=== PATIENT | female | born 2000 | race Two or more races ===

== ENCOUNTER 2019-04-03 07:53 | Emergency (ER) | payer OTHER ==
[2019-04-03] MEDS ORDERED: ONDANSETRON HCL INJ/PF 4 MG/2 ML SDV IV ONE (08:32)
--- NOTE | 2019-04-03 08:51 | ER Document Report ---
ED GI/ - General Chief Complaint: Abdominal Pain Stated Complaint: ABDOMINAL PAIN Time Seen by Provider: 04/03/19 08:31 Notes: Patient is otherwise healthy 18-year-old female presents to the emergency department for right lower abdominal pain. States his pain started 1930 last evening. Patient is also complaining of generalized nausea. States the pain is increased since last evening. States it is sharp in nature. Patient's denying any dysuria or vaginal discharge. Patient has no medical problems, takes a daily medications, has no allergies, states last menstrual cycle was 2 weeks ago. - Related Data Allergies/Adverse Reactions: No Known Allergies Allergy (Unverified 04/03/19 07:57) Past Medical History - General Information source: Patient - Social History Smoking Status: Never Smoker Chew tobacco use (# tins/day): No Frequency of alcohol use: None Drug Abuse: None Family History: Reviewed & Not Pertinent Patient has suicidal ideation: No Patient has homicidal ideation: No Past Surgical History: Reports: Hx Oral Surgery - wisdom teeth Review of Systems - Review of Systems Constitutional: denies: Fever EENT: No symptoms reported Cardiovascular: No symptoms reported Respiratory: No symptoms reported Gastrointestinal: See HPI Genitourinary: See HPI Female Genitourinary: See HPI Musculoskeletal: No symptoms reported Skin: No symptoms reported Hematologic/Lymphatic: No symptoms reported Neurological/Psychological: No symptoms reported Physical Exam - Vital signs Vitals: Temp Pulse Resp BP Pulse Ox 97.7 F 59 L 16 100/63 100 04/03/19 07:59 04/03/19 07:59 04/03/19 07:59 04/03/19 07:59 04/03/19 07:59 - Notes Notes: GENERAL: Alert, interacts well. No acute distress. HEAD: Normocephalic, atraumatic. EYES: Pupils equal, round, and reactive to light. Extraocular movements intact. ENT: Oral mucosa moist, tongue midline. NECK: Full range of motion. Supple. Trachea midline. LUNGS: Clear to auscultation bilaterally, no wheezes, rales, or rhonchi. No respiratory distress. HEART: Regular rate and rhythm. No murmur ABDOMEN: Soft, right lower quadrant abdominal pain noted, otherwise abdominal exam benign. Non-distended. Bowel sounds present in all 4 quadrants. EXTREMITIES: Moves all 4 extremities spontaneously. No edema, normal radial and dorsalis pedis pulses bilaterally. No cyanosis. BACK: no cervical, thoracic, lumbar midline tenderness. No saddle anesthesia, normal distal neurovascular exam. No CVA tenderness noted bilaterally. NEUROLOGICAL: Alert and oriented x3. Normal speech. cranial nerves II through XII grossly intact. PSYCH: Normal affect, normal mood. SKIN: Warm, dry, normal turgor. No rashes or lesions noted. Course - Re-evaluation Re-evalutation: 04/03/19 12:01 Laboratory 04/03/19 04/03/19 04/03/19 08:51 08:51 08:51 WBC 4.3 RBC 4.13 Hgb 12.3 Hct 36.0 MCV 87 MCH 29.8 MCHC 34.2 RDW 12.7 Plt Count 198 Lymph % (Auto) 39.7 Lumpkin % (Auto) 9.2 Eos % (Auto) 1.4 Baso % (Auto) 0.7 Absolute Neuts (auto) 2.1 Absolute Lymphs (auto) 1.7 Absolute Monos (auto) 0.4 Absolute Eos (auto) 0.1 Absolute Basos (auto) 0.0 Seg Neutrophils % 49.0 Sodium 140.0 Potassium 4.0 Chloride 105 Carbon Dioxide 26 Anion Gap 9 BUN 11 Creatinine 0.67 Est GFR ( Amer) > 60 Est GFR (MDRD) Non-Af > 60 Glucose 86 Calcium 9.5 Total Bilirubin 0.7 Direct Bilirubin 0.0 Neonat Total Bilirubin Not Reportable Neonat Direct Bilirubin Not Reportable Neonat Indirect Bili Not Reportable AST 18 ALT 11 Alkaline Phosphatase 45 L Total Protein 7.2 Albumin 4.5 Lipase 33.6 Serum HCG, Qual NEGATIVE Urine Color Urine Appearance Urine pH Ur Specific Dickerson Urine Protein Urine Glucose (UA) Urine Ketones Urine Blood Urine Nitrite Urine Bilirubin Urine Urobilinogen Ur Leukocyte Esterase Ur Squamous Epith Cells Calcium Oxalate Crystal Amorphous Sediment Urine Mucus Urine Ascorbic Acid 04/03/19 08:51 WBC RBC Hgb Hct MCV MCH MCHC RDW Plt Count Lymph % (Auto) [place] % (Auto) Eos % (Auto) Baso % (Auto) Absolute Neuts (auto) Absolute Lymphs (auto) Absolute Monos (auto) Absolute Eos (auto) Absolute Basos (auto) Seg Neutrophils % Sodium Potassium Chloride Carbon Dioxide Anion Gap BUN Creatinine Est GFR ( Amer) Est GFR (MDRD) Non-Af Glucose Calcium Total Bilirubin Direct Bilirubin Neonat Total Bilirubin Neonat Direct Bilirubin Neonat Indirect Bili AST ALT Alkaline Phosphatase Total Protein Albumin Lipase Serum HCG, Qual Urine Color YELLOW Urine Appearance SLIGHTLY-CLOUDY Urine pH 5.0 Ur Specific Dickerson 1.026 Urine Protein NEGATIVE Urine Glucose (UA) NEGATIVE Urine Ketones NEGATIVE Urine Blood NEGATIVE Urine Nitrite NEGATIVE Urine Bilirubin NEGATIVE Urine Urobilinogen 2.0 H Ur Leukocyte Esterase NEGATIVE Ur Squamous Epith Cells MANY Calcium Oxalate Crystal RARE Amorphous Sediment TRACE Urine Mucus 1+ Urine Ascorbic Acid NEGATIVE Abdomen Ultrasound 04/03/19 09:14 IMPRESSION: Appendix not seen, normal or otherwise. This does not exclude appendicitis. Abdomen/Pelvis CT 04/03/19 10:14 IMPRESSION: 1. No evidence of appendicitis. 2. Constipation. 3. Left adnexal region cyst, doubtful clinical significance in a reproductive age female without left pelvic symptoms. Ultrasound was unable to visualize the appendix. I have reassessed patient at bedside she continues with right lower quadrant abdominal pain. No pelvic pain noted bilaterally. Patient continues to deny any vaginal discharge or dysuria. Discussed continuing with CT although no signs of leukocytosis on blood work. Patient voices she would like to continue with CT imaging at this time. CT images shows signs of constipation. I discussed this with patient at length at bedside. Patient is wishing for magnesium citrate at this time. She continues to decline a pelvic exam. Discussed drinking half the bottle of magnesium citrate today and in 24 hours should she still not have a bowel movement drink the other half. Discussed close follow-up with primary care provider with close return precautions. - Vital Signs Vital signs: Temp Pulse Resp BP Pulse Ox 97.7 F 59 L 16 100/63 100 04/03/19 07:59 04/03/19 07:59 04/03/19 07:59 04/03/19 07:59 04/03/19 07:59 - Laboratory Result Diagrams: 04/03/19 08:51 04/03/19 08:51 Laboratory results interpreted by me: 04/03/19 04/03/19 08:51 08:51 Alkaline Phosphatase 45 L Urine Urobilinogen 2.0 H Discharge - Discharge Clinical Impression: Constipation Qualifiers: Constipation type: other constipation type Qualified Code(s): K59.09 - Other constipation Condition: Stable Disposition: HOME, SELF-CARE Instructions: Constipation ([facility]) Additional Instructions: As we discussed you have been seen and treated in the emergency department for constipation. Please make sure you drink half a bottle of magnesium citrate today. Should you not have a bowel movement in 24 hours you can drink the other half of the bottle. Please also make sure he follow-up with your primary care provider in the next 12 to 24 hours. Please return to the emergency department for any concerns. Forms: Return to Work
[2019-04-03 09:09] LABS: ABSOLUTE EOSINOPHILS # (AUTO) 0.1 10^3/uL (0.0-0.6); ABSOLUTE LYMPHOCYTES (AUTO) 1.7 10^3/uL (0.5-4.7); ABSOLUTE MONOCYTES (AUTO) 0.4 10^3/uL (0.1-1.4); ABSOLUTE NEUT (AUTO) 2.1 10^3/uL (1.7-8.2); BASOPHILS % (AUTO) 0.7 % (0-2); EOSINOPHILS % (AUTO) 1.4 % (0-6); HEMOGLOBIN 12.3 g/dL (12.0-15.5); LYMPHOCYTES % (AUTO) 39.7 % (13-45); MEAN CORPUSCULAR HEMOGLOBIN 29.8 pg (27.0-33.4); MEAN CORPUSCULAR HGB CONC 34.2 g/dL (32.0-36.0); MEAN CORPUSCULAR VOLUME 87 fl (80-97); MONOCYTES % (AUTO) 9.2 % (3-13); PLATELET COUNT 198 10^3/uL (150-450); RED BLOOD COUNT 4.13 10^6/uL (3.72-5.28); RED CELL DISTRIBUTION WIDTH 12.7 % (11.5-14.0); TOTAL CELLS COUNTED % (AUTO) 100 %; WHITE BLOOD COUNT 4.3 10^3/uL (4.0-10.5)
[2019-04-03 09:30] LABS: ALBUMIN 4.5 g/dL (3.7-5.6); ALKALINE PHOSPHATASE 45 U/L (50-135); ANION GAP 9 (5-19); ASPARTATE AMINO TRANSFERASE 18 U/L (5-30); BILIRUBIN,TOTAL 0.7 mg/dL (0.2-1.3); BLOOD UREA NITROGEN 11 mg/dL (7-20); CALCIUM 9.5 mg/dL (8.4-10.2); CARBON DIOXIDE 26 mmol/L (22-30); CHLORIDE 105 mmol/L (98-107); GLUCOSE 86 mg/dL (75-110); TOTAL PROTEIN 7.2 g/dL (6.3-8.2)
[2019-04-03 09:43] LABS: APPEARANCE,URINE SLIGHTLY-CLOUDY; BILIRUBIN,URINE NEGATIVE (NEGATIVE); COLOR,URINE YELLOW; GLUCOSE, URINE NEGATIVE (NEGATIVE); KETONES,URINE NEGATIVE (NEGATIVE); LEUKOCYTE ESTERASE,URINE NEGATIVE (NEGATIVE); NITRITE,URINE NEGATIVE (NEGATIVE); PROTEIN,URINE NEGATIVE (NEGATIVE); URINE SPECIFIC GRAVITY 1.026
--- NOTE | 2019-04-03 09:48 | RADIOLOGY REPORT (SQ) ---
EXAM DESCRIPTION: U/S ABDOMEN LTD W/DOPPLER COMPLETED DATE/TIME: 04/03/2019 9:37 am REASON FOR STUDY: RLQ pain, r/o appy COMPARISON: None. TECHNIQUE: Static and real time ramsay scale imaging performed of the right lower quadrant with additi onal compression maneuvers. LIMITATIONS: None. FINDINGS: APPENDIX: Not visualized. BOWEL: No regional dilated loops. COMPRESSION MANEUVERS: No rebound pain with compression. OTHER: No other significant finding. IMPRESSION: Appendix not seen, normal or otherwise. This does not exclude appendicitis. TECHNICAL DOCUMENTATION: JOB ID: [id number] [employer]- All Rights Reserved Reading location - IP/workstation name: CONFERENCE [email or web address]
[2019-04-03 09:51] LABS: ADD MANUAL MICROSCOPIC YES; AMORPHOUS SEDIMENT,UR TRACE; CALCIUM OXALATE CRYSTALS,UR RARE /HPF
[2019-04-03] MEDS ORDERED: FENTANYL CITRATE INJ/PF 100 MCG/2 ML AMPUL IV ONE (10:14)
--- NOTE | 2019-04-03 10:54 | RADIOLOGY REPORT (SQ) ---
EXAM DESCRIPTION: CT ABD/PELVIS WITH IV ONLY COMPLETED DATE/TIME: 04/03/2019 10:42 am REASON FOR STUDY: RLQ pain COMPARISON: Ultrasound from earlier. TECHNIQUE: CT scan of the abdomen and pelvis performed using helical scanning technique with dynamic intravenous contrast injection. No oral contrast. Images reviewed with lung, soft tissue, and bone windows. Reconstructed coronal and sagittal MPR images reviewed. Delayed images for evaluation of the urinary system also acquired. All images stored on PACS. All CT scanners at this facility use dose modulation, iterative reconstruction, and/or weight based d osing when appropriate to reduce radiation dose to as low as reasonably achievable (ALARA). [facility]: Dose Right [facility]: CareDose [facility]: Dose Right [facility]: Teradose 4D [facility]: [employer] CONTRAST TYPE AND DOSE: contrast/concentration: Isovue 350.00 mg/ml; Total Contrast Delivered: 51.0 ml; Total Saline Delivered: 65.0 ml RENAL FUNCTION: None required. The patient is less than 50 years old. RADIATION DOSE: CT Rad equipment meets quality standard of care and radiation dose reduction techniq ues were employed. CTDIvol: NaN - NaN mGy. DLP: 0 mGy-cm.. LIMITATIONS: None. FINDINGS: LOWER CHEST: No significant findings. No nodules or infiltrates. LIVER: Normal size. No masses. No dilated ducts. SPLEEN: Normal size. No focal lesions. PANCREAS: No masses. No significant calcifications. No adjacent inflammation or peripancreatic fluid collections. Pancreatic duct not dilated. GALLBLADDER: No identified stones by CT criteria. No inflammatory changes to suggest cholecystitis. ADRENAL GLANDS: No significant masses or asymmetry. RIGHT KIDNEY AND URETER: No solid masses. No significant calcification. No hydronephrosis or hydroure ter. LEFT KIDNEY AND URETER: Minimal punctate nephrolithiasis. Otherwise normal. AORTA AND VESSELS: No aneurysm. No dissection. Renal arteries, SMA, celiac without stenosis. RETROPERITONEUM: No retroperitoneal adenopathy, hemorrhage or masses. BOWEL AND PERITONEAL CAVITY: Fair amount of stool in the proximal half of the colon. No mechanical b owel obstruction or ascites. APPENDIX: Suboptimally visualized but normal as assessed. No right lower quadrant inflammatory proce ss. PELVIS: Sub 3 cm left adnexal region cyst without suspicious features. ABDOMINAL WALL: No masses. No hernias. BONES: No significant or acute findings. OTHER: No other significant finding. IMPRESSION: 1. No evidence of appendicitis. 2. Constipation. 3. Left adnexal region cyst, doubtful clinical significance in a reproductive age female without left pelvic symptoms. TECHNICAL DOCUMENTATION: JOB ID: [id number] Quality ID # [id number]: Final reports with documentation of one or more dose reduction techniques (e.g., Au tomated exposure control, adjustment of the mA and/or kV according to patient size, use of iterative reconstruction technique) 2010 [employer]- All Rights Reserved Reading location - IP/workstation name: [email or web address]
[2019-04-03] MEDS ORDERED: MAGNESIUM CITRATE 296 ML BOTTLE PO ONE (12:04)
[2019-04-03 12:13] VITALS: BP 96/51
== END 2019-04-03 12:13 | disposition home or self-care (01) ==
LOC: ER 07:53
DX: K59.09 Other constipation (principal); R10.31 Right lower quadrant pain
CPT/HCPCS: 99284; 96374; 96375; 36415; 83690; 84703; 85025; 80053; 81001; 76705; 93976; 74177; J3490; J3010; J2405

== ENCOUNTER 2019-04-07 05:53 | Emergency (ER) | payer OTHER ==
[2019-04-07] MEDS ORDERED: NORMAL SALINE 1000 ML 1,000 ML IV ONE (06:48)
[2019-04-07] MEDS ORDERED: MORPHINE SULFATE 10 MG/ML INJ IV ONE (06:49)
[2019-04-07 07:30] LABS: ABSOLUTE LYMPHOCYTES (AUTO) 1.5 10^3/uL (0.5-4.7); ABSOLUTE MONOCYTES (AUTO) 0.4 10^3/uL (0.1-1.4); ABSOLUTE NEUT (AUTO) 2.2 10^3/uL (1.7-8.2); BASOPHILS % (AUTO) 0.7 % (0-2); EOSINOPHILS % (AUTO) 0.9 % (0-6); HEMATOCRIT 37.6 % (36.0-47.0); HEMOGLOBIN 12.8 g/dL (12.0-15.5); LYMPHOCYTES % (AUTO) 36.1 % (13-45); MEAN CORPUSCULAR HEMOGLOBIN 29.6 pg (27.0-33.4); MEAN CORPUSCULAR HGB CONC 34.2 g/dL (32.0-36.0); MEAN CORPUSCULAR VOLUME 87 fl (80-97); MONOCYTES % (AUTO) 8.7 % (3-13); PLATELET COUNT 203 10^3/uL (150-450); RED BLOOD COUNT 4.34 10^6/uL (3.72-5.28); RED CELL DISTRIBUTION WIDTH 12.7 % (11.5-14.0); SEGMENTED NEUTROPHILS % (AUTO) 53.6 % (42-78); TOTAL CELLS COUNTED % (AUTO) 100 %; WHITE BLOOD COUNT 4.2 10^3/uL (4.0-10.5)
[2019-04-07 08:10] LABS: ANION GAP 10 (5-19); BLOOD UREA NITROGEN 15 mg/dL (7-20); CALCIUM 9.4 mg/dL (8.4-10.2); CARBON DIOXIDE 25 mmol/L (22-30); CHLORIDE 104 mmol/L (98-107); GLUCOSE 108 mg/dL (75-110); POTASSIUM 3.9 mmol/L (3.6-5.0)
--- NOTE | 2019-04-07 08:46 | RADIOLOGY REPORT (SQ) ---
EXAM DESCRIPTION: CT ABD/PELVIS NO ORAL OR IV COMPLETED DATE/TIME: 04/07/2019 8:23 am REASON FOR STUDY: R flank pain COMPARISON: None. TECHNIQUE: CT scan of the abdomen and pelvis performed without intravenous or oral contrast. Images reviewed with lung, soft tissue, and bone windows. Reconstructed coronal and sagittal MPR images revi ewed. All images stored on PACS. All CT scanners at this facility use dose modulation, iterative reconstruction, and/or weight based d osing when appropriate to reduce radiation dose to as low as reasonably achievable (ALARA). [facility]: Dose Right [facility]: CareDose [facility]: Dose Right [facility]: Teradose 4D [facility]: [employer] RADIATION DOSE: CT Rad equipment meets quality standard of care and radiation dose reduction techniq ues were employed. CTDIvol: 4.8 mGy. DLP: 244 mGy-cm.mGy. LIMITATIONS: None. FINDINGS: LOWER CHEST: No significant findings. No nodules or infiltrates. NON-CONTRASTED LIVER, SPLEEN, ADRENALS: Evaluation limited by lack of IV contrast. No identified sign ificant masses. PANCREAS: No masses. No peripancreatic inflammatory changes. GALLBLADDER: No identified stones by CT criteria. No inflammatory changes to suggest cholecystitis. RIGHT KIDNEY AND URETER: No suspicious masses. Assessment limited by lack of IV contrast. Medullary nephrocalcinosis. No hydronephrosis or hydroureter. LEFT KIDNEY AND URETER: No suspicious masses. Assessment limited by lack of IV contrast. Medullary nephrocalcinosis. 2 mm stone upper pole. No hydronephrosis or hydroureter. AORTA AND RETROPERITONEUM: No aneurysm. No retroperitoneal masses or adenopathy. BOWEL AND PERITONEAL CAVITY: No obvious masses or inflammatory changes. No free fluid. APPENDIX: Not visualized. PELVIS, BLADDER, AND ABDOMINAL WALL:No abnormal masses. No free fluid. Bladder normal. BONES: No significant findings. OTHER: No other significant finding. IMPRESSION: Medullary nephrocalcinosis. No ureteral or bladder calculi identified. COMMENT: Quality ID # [id number]: Final reports with documentation of one or more dose reduction techniques (e.g., Automated exposure control, adjustment of the mA and/or kV according to patient size, use of iterative reconstruction technique) TECHNICAL DOCUMENTATION: JOB ID: [id number] [employer]- All Rights Reserved Reading location - IP/workstation name: [email or web address]
--- NOTE | 2019-04-07 09:17 | ER Document Report ---
ED General - General Chief Complaint: Flank Pain Stated Complaint: BACK PAIN Time Seen by Provider: 04/07/19 06:47 Primary Care Provider: [facility] [NO LOCAL MD] - Follow up as needed - [facility] Notes: This is a 18-year-old female who presents today with a complaint of left flank pain. Patient states that pain started this morning. She describes the pain as sharp and colicky. She denies any trauma. She denies any hematuria. has some dysuria. She denies any bowel or bladder incontinence. Patient also notes that she has had similar pain about a year ago when she was at [employer] [place]. Describes her symptoms as moderate. Pain is worse with movement and palpation. She denies any intra-abdominal pain. - Related Data Allergies/Adverse Reactions: No Known Allergies Allergy (Unverified 04/03/19 07:57) Past Medical History - Social History Smoking Status: Never Smoker Chew tobacco use (# tins/day): No Frequency of alcohol use: None Drug Abuse: None Family History: Reviewed & Not Pertinent Patient has suicidal ideation: No Patient has homicidal ideation: No Past Surgical History: Reports: Hx Oral Surgery - wisdom teeth Review of Systems - Review of Systems Cardiovascular: denies: Chest pain Gastrointestinal: denies: Abdominal pain Genitourinary: Dysuria, Frequency, Flank pain. denies: Burning, Urgency Neurological/Psychological: denies: Headaches -: Yes All other systems reviewed and negative Physical Exam - Vital signs Vitals: Temp Pulse Resp BP Pulse Ox 98.3 F 77 17 102/63 100 04/07/19 06:14 04/07/19 06:14 04/07/19 06:14 04/07/19 06:14 04/07/19 06:14 Interpretation: Normal - General General appearance: Appears well, Alert - Respiratory Respiratory status: No respiratory distress Chest status: Nontender Breath sounds: Normal Chest palpation: Normal - Cardiovascular Rhythm: Regular Heart sounds: Normal auscultation Murmur: No - Abdominal Inspection: Normal Distension: No distension Bowel sounds: Normal Tenderness: Nontender Organomegaly: No organomegaly - Back Back: Normal, Nontender, CVA tenderness - Right CVA tenderness - Extremities General upper extremity: Normal inspection, Nontender, Normal color, Normal ROM, Normal temperature General lower extremity: Normal inspection, Nontender, Normal color, Normal ROM, Normal temperature, Normal weight bearing. No: Verna's sign - Neurological Neuro grossly intact: Yes Cognition: Normal Orientation: AAOx4 Mirna Coma Scale Eye Opening: Spontaneous Mirna Coma Scale Verbal: Oriented [place] Coma Scale Motor: Obeys Commands [place] Coma Scale Total: 15 Speech: Normal Motor strength normal: LUE, RUE, LLE, RLE Sensory: Normal Course - Re-evaluation Re-evalutation: 04/07/19 09:17 She diagnosis includes renal colic versus UTI versus sacroiliitis. Will check basic labs. Will get CT to rule out renal colic. 04/07/19 11:42 Patient reevaluated. Patient feels much better. Labs and CT reviewed. Will cover for UTI with Keflex. She is stable for discharge. - Vital Signs Vital signs: Temp Pulse Resp BP Pulse Ox 98.6 F 52 L 15 108/51 L 100 04/07/19 12:11 04/07/19 12:11 04/07/19 12:11 04/07/19 12:11 04/07/19 12:11 - Laboratory Result Diagrams: 04/07/19 07:20 04/07/19 07:20 Laboratory results interpreted by me: 04/07/19 09:40 Ur Leukocyte Esterase MODERATE H Discharge - Discharge Clinical Impression: Flank pain, Kidney stone, Acute UTI Condition: Good Disposition: HOME, SELF-CARE Instructions: Flank Pain ([facility]), Kidney Stone ([facility]), Urinary Tract Infection ([facility]) Prescriptions: Tramadol HCl [Ultram 50 mg Tablet] 50 mg PO Q4HP PRN #12 tab PRN Reason: Cephalexin Monohydrate [Keflex 500 mg Capsule] 500 mg PO TID 10 Days #30 capsule Referrals: [facility] [NO LOCAL MD] - Follow up as needed
[2019-04-07 10:29] LABS: APPEARANCE,URINE SLIGHTLY-CLOUDY; BILIRUBIN,URINE NEGATIVE (NEGATIVE); COLOR,URINE YELLOW; GLUCOSE, URINE NEGATIVE (NEGATIVE); KETONES,URINE NEGATIVE (NEGATIVE); LEUKOCYTE ESTERASE,URINE MODERATE (NEGATIVE); NITRITE,URINE NEGATIVE (NEGATIVE); PROTEIN,URINE NEGATIVE (NEGATIVE); UROBILINOGEN,URINE NEGATIVE mg/dL (<2.0)
[2019-04-07] MEDS ORDERED: CEPHALEXIN 500 MG CAPSULE PO ONE (11:41)
[2019-04-07 12:11] VITALS: BP 108/51
== END 2019-04-07 12:12 | disposition home or self-care (01) ==
LOC: ER 05:53
DX: N39.0 Urinary tract infection, site not specified (principal); N20.0 Calculus of kidney; R10.9 Unspecified abdominal pain; R30.0 Dysuria; R35.0 Frequency of micturition
CPT/HCPCS: 99284; 96361; 96374; 36415; 85025; 81025; 80048; 81001; 74176; J2270; J7030

== ENCOUNTER 2019-06-04 20:04 | Emergency (ER) | payer OTHER ==
--- NOTE | 2019-06-04 21:37 | ER Document Report ---
ED Medical Screen (RME) - General Chief Complaint: Lower Abdominal Pain Stated Complaint: POSSIBLE UTI,LOWER ABDOMINAL PAIN Time Seen by Provider: 06/04/19 21:33 Notes: Patient is a 18-year-old female who presents to the emergency department with a chief complaint of of urinary symptoms. She also has right lower quadrant abdominal pain and back pain. Patient states that she feels like she has a urinary tract infection. She has had urinary tract infections before. She also has complaints of some vaginal discharge. Exam: Soft, mildly tender mid to right abdomen. I have greeted and performed a rapid initial assessment of this patient. A comprehensive ED assessment and evaluation of the patient, analysis of test results and completion of medical decision making process will be conducted by an additional ED providers. TRAVEL OUTSIDE OF THE [place] IN LAST 30 DAYS: No - Related Data Allergies/Adverse Reactions: No Known Allergies Allergy (Verified 06/04/19 21:29) Past Medical History - Social History Chew tobacco use (# tins/day): No Past Surgical History: Reports: Hx Oral Surgery - wisdom teeth Physical Exam - Vital signs Vitals: Temp Pulse Resp BP Pulse Ox 98.4 F 52 L 20 103/60 100 06/04/19 21:15 06/04/19 21:15 06/04/19 21:15 06/04/19 21:15 06/04/19 21:15 Course - Vital Signs Vital signs: Temp Pulse Resp BP Pulse Ox 98.4 F 52 L 20 103/60 100 06/04/19 21:15 06/04/19 21:15 06/04/19 21:15 06/04/19 21:15 06/04/19 21:15
[2019-06-04 22:36] LABS: ABSOLUTE LYMPHOCYTES (AUTO) 1.7 10^3/uL (0.5-4.7); ABSOLUTE MONOCYTES (AUTO) 0.3 10^3/uL (0.1-1.4); ABSOLUTE NEUT (AUTO) 2.6 10^3/uL (1.7-8.2); BASOPHILS % (AUTO) 0.6 % (0-2); EOSINOPHILS % (AUTO) 0.7 % (0-6); HEMATOCRIT 38.3 % (36.0-47.0); HEMOGLOBIN 12.9 g/dL (12.0-15.5); LYMPHOCYTES % (AUTO) 36.2 % (13-45); MEAN CORPUSCULAR HEMOGLOBIN 30.1 pg (27.0-33.4); MEAN CORPUSCULAR HGB CONC 33.8 g/dL (32.0-36.0); MEAN CORPUSCULAR VOLUME 89 fl (80-97); MONOCYTES % (AUTO) 7.2 % (3-13); PLATELET COUNT 216 10^3/uL (150-450); SEGMENTED NEUTROPHILS % (AUTO) 55.3 % (42-78); TOTAL CELLS COUNTED % (AUTO) 100 %; WHITE BLOOD COUNT 4.7 10^3/uL (4.0-10.5)
[2019-06-04 22:42] LABS: APPEARANCE,URINE CLOUDY; BILIRUBIN,URINE NEGATIVE (NEGATIVE); COLOR,URINE YELLOW; GLUCOSE, URINE NEGATIVE (NEGATIVE); KETONES,URINE NEGATIVE (NEGATIVE); PROTEIN,URINE 30 mg/dL (NEGATIVE); URINE SPECIFIC GRAVITY 1.017; UROBILINOGEN,URINE NEGATIVE mg/dL (<2.0)
[2019-06-04 22:57] LABS: ALKALINE PHOSPHATASE 49 U/L (50-135); ANION GAP 9 (5-19); ASPARTATE AMINO TRANSFERASE 19 U/L (5-30); BILIRUBIN,DIRECT 0.1 mg/dL (0.0-0.4); BILIRUBIN,TOTAL 0.6 mg/dL (0.2-1.3); BLOOD UREA NITROGEN 10 mg/dL (7-20); CALCIUM 9.3 mg/dL (8.4-10.2); CARBON DIOXIDE 26 mmol/L (22-30); CHLORIDE 103 mmol/L (98-107); GLUCOSE 85 mg/dL (75-110); POTASSIUM 4.4 mmol/L (3.6-5.0); TOTAL PROTEIN 7.6 g/dL (6.3-8.2)
[2019-06-05 00:49] LABS: CHLAM PCR NOT DETECTED (NOT DETECT)
[2019-06-05] MEDS ORDERED: CEPHALEXIN 500 MG CAPSULE PO ONE (01:38)
--- NOTE | 2019-06-05 01:39 | ER Document Report ---
ED GI/ - General Chief Complaint: Lower Abdominal Pain Stated Complaint: POSSIBLE UTI,LOWER ABDOMINAL PAIN Time Seen by Provider: 06/04/19 21:33 Notes: Patient is a 18-year-old female that comes emergency department for chief complaint of dysuria, urinary frequency, some generalized tenderness in the lower abdomen, and some tenderness in the right flank. Right flank pain is chronic however. She denies nausea or vomiting, fever or chills. She reports scant vaginal discharge but nothing out of the ordinary. She denies vaginal bleeding. She is sexually active with her who is at bedside. She denies other sexual partners or concerns for STI. She denies any daily medications, surgeries, or any other complaints. TRAVEL OUTSIDE OF THE [place] IN LAST 30 DAYS: No - Related Data Allergies/Adverse Reactions: No Known Allergies Allergy (Verified 06/04/19 21:29) Past Medical History - General Information source: Patient - Social History Smoking Status: Current Every Day Smoker Chew tobacco use (# tins/day): No Frequency of alcohol use: None Drug Abuse: None Lives with: Family Family History: Reviewed & Not Pertinent Patient has suicidal ideation: No Patient has homicidal ideation: No Past Surgical History: Reports: Hx Oral Surgery - wisdom teeth - Immunizations Immunizations up to date: Yes Hx Diphtheria, Pertussis, Tetanus Vaccination: Yes Review of Systems - Review of Systems Constitutional: No symptoms reported EENT: No symptoms reported Cardiovascular: No symptoms reported Respiratory: No symptoms reported Gastrointestinal: See HPI Genitourinary: See HPI Female Genitourinary: See HPI Musculoskeletal: No symptoms reported Skin: No symptoms reported Hematologic/Lymphatic: No symptoms reported Neurological/Psychological: No symptoms reported Physical Exam - Vital signs Vitals: Temp Pulse Resp BP Pulse Ox 98.4 F 52 L 20 103/60 100 06/04/19 21:15 06/04/19 21:15 06/04/19 21:15 06/04/19 21:15 06/04/19 21:15 - Notes Notes: GENERAL: Alert, interacts well. No acute distress. HEAD: Normocephalic, atraumatic. EYES: Pupils equal, round, and reactive to light. Extraocular movements intact. ENT: Oral mucosa moist, tongue midline. Oropharynx unremarkable. Airway patent. LUNGS: Clear to auscultation bilaterally, no wheezes, rales, or rhonchi. No respiratory distress. HEART: Regular rate and rhythm. No murmur ABDOMEN: Soft, non-tender. Non-distended. EXTREMITIES: Moves all 4 extremities spontaneously. No edema, normal radial and dorsalis pedis pulses bilaterally. No cyanosis. BACK: no cervical, thoracic, lumbar midline tenderness. No saddle anesthesia, normal distal neurovascular exam. Moves all extremities in full range of motion. NEUROLOGICAL: Alert and oriented x3. Normal speech. Cranial nerves II through XII grossly intact. PSYCH: Normal affect, normal mood. SKIN: Warm, dry, normal turgor. No rashes or lesions noted. Course - Re-evaluation Re-evalutation: Nontender abdomen on exam. No CVA tenderness. CBC, chemistry unremarkable. Urine does appear to be infected. Placed culture, placed on antibiotics, she request Diflucan as well. I did offer pelvic exam but this was declined. Gonorrhea and Chlamydia from urine negative. Patient is in a monogamous relationship with her reportedly. Discussed follow-up and return precautions. Patient states understanding and agreement. Stable at time of discharge with unremarkable vital signs. - Vital Signs Vital signs: Temp Pulse Resp BP Pulse Ox 98.2 F 64 16 106/55 L 100 06/05/19 01:54 06/05/19 01:54 06/05/19 01:54 06/05/19 01:54 06/05/19 01:54 - Laboratory Result Diagrams: 06/04/19 22:20 06/04/19 22:20 Laboratory results interpreted by me: 06/04/19 06/04/19 22:20 22:20 Alkaline Phosphatase 49 L Urine Protein 30 H Urine Blood LARGE H Leukocyte Esterase Rfl LARGE H Discharge - Discharge Clinical Impression: Dysuria, Flank pain Abdominal pain Qualifiers: Abdominal location: lower abdomen, unspecified Qualified Code(s): R10.30 - Lower abdominal pain, unspecified Condition: Stable Disposition: HOME, SELF-CARE Additional Instructions: Your evaluation indicates a urinary tract infection. Please take antibiotics as prescribed to completion. After completion take Diflucan to avoid yeast infec tion. Your previous imaging showed medullary nephrocalcinosis. Please follow with primary care for additional evaluation and monitoring of this. Return if you worsen including vomiting, fever, severe abdominal and flank pain, or any other concerning or worsening symptoms. Prescriptions: Fluconazole [Diflucan] 150 mg PO ONCE PRN #1 tablet PRN Reason: Cephalexin Monohydrate [Keflex 500 mg Capsule] 500 mg PO BID 7 Days #14 capsule Forms: Return to Work
[2019-06-05 01:56] VITALS: BP 106/55
== END 2019-06-05 02:15 | disposition home or self-care (01) ==
LOC: ER 20:04
DX: R30.0 Dysuria (principal); R10.9 Unspecified abdominal pain; R10.30 Lower abdominal pain, unspecified; R10.84 Generalized abdominal pain; R35.0 Frequency of micturition; G89.29 Other chronic pain; F17.200 Nicotine dependence, unspecified, uncomplicated
CPT/HCPCS: 36415; 80053; 81001; 85025; 87086; 87491; 87591; 99283

== ENCOUNTER 2019-10-02 21:40 | Emergency (ER) | payer OTHER ==
--- NOTE | 2019-10-02 23:22 | RADIOLOGY REPORT (SQ) ---
Left elbow four view on 10/02/2019 at 10:57 PM CLINICAL INDICATION: Pain and decreased range of motion after fall and injury COMPARISON: None FINDINGS: There are no fractures. Visualized joints are well aligned. No joint effusion to suggest an occult fracture is noted. No bony abnormality is noted. IMPRESSION: No acute abnormality.
[2019-10-03] MEDS ORDERED: IBUPROFEN 400 MG TABLET PO ONE (01:22)
[2019-10-03 01:53] VITALS: BP 110/68
--- NOTE | 2019-10-03 05:00 | ER Document Report ---
Entered by ANGELICA JONES SCRIBE 10/03/19 0111 Acting as scribe for:MARIPOSA ADAMS IV, MD ED Extremity Problem, Upper - General Chief Complaint: Elbow Injury Stated Complaint: LEFT ELBOW PAIN Primary Care Provider: RFANK RUTLEDGE DO [ACTIVE STAFF] - Follow up as needed Mode of Arrival: Ambulatory Information source: Patient Notes: This 19 year old female patient with no significant past medical history presents to the ED today with complaints of left elbow pain that started around [id number] last night. Patient states that she was wrestling when her left elbow "popped out and then back in." She notes that this has never happened to her before. Denies any other symptoms. TRAVEL OUTSIDE OF THE [place] IN LAST 30 DAYS: No - Related Data Allergies/Adverse Reactions: No Known Allergies Allergy (Verified 10/02/19 22:25) Past Medical History - General Information source: Patient - Social History Smoking Status: Never Smoker Cigarette use (# per day): No Chew tobacco use (# tins/day): No Smoking Education Provided: No Frequency of alcohol use: None Drug Abuse: None Family History: Reviewed & Not Pertinent Patient has suicidal ideation: No Patient has homicidal ideation: No Past Surgical History: Reports: Hx Oral Surgery - wisdom teeth - Immunizations Immunizations up to date: Yes Hx Diphtheria, Pertussis, Tetanus Vaccination: Yes Review of Systems - Review of Systems Constitutional: No symptoms reported EENT: No symptoms reported Cardiovascular: No symptoms reported Respiratory: No symptoms reported Gastrointestinal: No symptoms reported Genitourinary: No symptoms reported Female Genitourinary: No symptoms reported Musculoskeletal: See HPI, Joint pain - Left elbow Skin: No symptoms reported Hematologic/Lymphatic: No symptoms reported Neurological/Psychological: No symptoms reported -: Yes All other systems reviewed and negative Physical Exam - Vital signs Vitals: Temp Pulse Resp BP Pulse Ox 98.8 F 62 15 113/53 L 100 10/02/19 21:44 10/02/19 21:44 10/02/19 21:44 10/02/19 21:44 10/02/19 21:44 - General General appearance: Alert - HEENT Head: Normocephalic, Atraumatic Eyes: Normal Pupils: PERRL - Respiratory Respiratory status: No respiratory distress Chest status: Nontender Breath sounds: Normal Chest palpation: Normal - Cardiovascular Rhythm: Regular Heart sounds: Normal auscultation Murmur: No Friction rub: No Gallop: None auscultated - Abdominal Inspection: Normal Distension: No distension Bowel sounds: Normal Tenderness: Nontender - Abdomen soft Organomegaly: No organomegaly - Back Back: Normal, Nontender - Extremities General lower extremity: Normal inspection Elbow: Tender - Tenderness to palpation to left elbow joint, Limited ROM - Decreased flexion and extension at elbow joint of LUE, Other - No crepitus. No: Deformity, Dislocation Wrist: Other - Radial pulses 2+ Hand: Other - Capillary refill < 2 seconds in left hand. Neurovascularly intact in left hand - Neurological Neuro grossly intact: Yes Orientation: AAOx4 - Psychological Associated symptoms: Normal affect, Normal mood - Skin Skin Temperature: Warm Skin Moisture: Dry Skin Color: Normal Course - Re-evaluation Re-evalutation: 10/03/19 01:22 Results of ED MSE discussed with patient. All questions were answered prior to discharge. Emergency signs and symptoms, reasons to return to the emergency department discussed with patient. - Vital Signs Vital signs: Temp Pulse Resp BP Pulse Ox 98.8 F 62 15 113/53 L 100 10/02/19 22:26 10/02/19 21:44 10/02/19 21:44 10/02/19 21:44 10/02/19 21:44 - Diagnostic Test Radiology reviewed: Reports reviewed Discharge - Discharge Clinical Impression: Strain of left elbow Qualifiers: Encounter type: initial encounter Qualified Code(s): S46.912A - Strain of unspecified muscle, fascia and tendon at shoulder and upper arm level, left arm, initial encounter Condition: Good Disposition: HOME, SELF-CARE Instructions: Ibuprofen (General) ([facility]) Additional Instructions: Return to the Emergency Department without delay if any worse. HOME CARE INSTRUCTIONS & INFORMATION: Thank you for choosing us for your medical needs. We hope you're satisfied with the care you received. After you leave, you must properly care for your problem and, at the same time, observe its progress. Any condition can change. Some illnesses can change rapidly over hours or days. If your condition worsens, return to the Emergency Department or see your physician promptly. ABOUT YOUR X-RAYS AND EKG'S: If you had an EKG or X-rays taken, they have been read by the Emergency Physician. The X-rays and EKG's will also be read by a Radiologist or Assistant Director Of Residence Life within 24 hours. If discrepancies are noted, you will be notified by telephone. Please be certain the ED has a correct telephone number & address where you can be reached. Also, realize that some fractures or abnormalities do not show up on initial X-rays. If your symptoms continue, see your physician. ABOUT YOUR LABORATORY TEST: If you had laboratory tests, the results have been reviewed by the Emergency Physician. Some test results (for example cultures) may not be available for several days. You will be contacted if any test result shows you need additional treatment. Please be certain the ED has a correct telephone number and address where you can be reached. ABOUT YOUR MEDICATIONS: You will receive instructions on how to take your medicine on the prescription label you receive. Additional information may be provided by the Pharmacy. If you have questions afterwards, call the ED for clarification or further instructions. Some prescribed medications may cause drowsiness. Do not perform tasks such as driving a car or operating machinery without consulting your Pharmacist. If you feel you need a refill of pain medication, your condition will need re-evaluation. Please do not call for a refill of any medication. ABOUT YOUR SIGNATURE: Signature of this document acknowledges to followin. Understanding that you received emergency treatment and that you may be released before al medical problems are known or treated. Please be certain the ED has a correct phone number & address where you can be reached. 2. Acknowledgement that you will arrange for follow-up care as recommended. 3. Authorization for the Emergency Physician to provide information to your follow-up Physician in order to maximize your care. AT ANY TIME, IF YOUR SYMPTOMS CHANGE SIGNIFICANTLY OR WORSEN OR YOU DEVELOP NEW SYMPTOMS, RETURN TO THE EMERGENCY DEPARTMENT IMMEDIATELY FOR RE-EVALUATION. OUR GOAL IS TO PROVIDE EXCELLENT MEDICAL CARE! WE HOPE THAT WE HAVE MET YOUR EXPECTATIONS DURING YOUR EMERGENCY DEPARTMENT VISIT AND THAT YOU FEEL YOU HAVE RECEIVED EXCELLENT CARE! Ice Packs Apply ice packs frequently against the painful area. Many different schedules are recommended, such as "20 minutes on, 20 minutes off" or "one hour ice, two hours rest." If you need to work, you may need to go longer between ice treatments. You should plan to have the area ice packed AT LEAST one fourth of the time. The ice should be applied over the wrap, tape, or splint, or over a layer of cloth -- not directly against the skin. Some ice bags have a built-in cloth and can be put directly on the skin. Sprain Your injury is a sprain. A sprain results from stretching or tearing of the ligaments, usually from a twisting injury. The ligaments will require time and protection in order to heal properly. Many sprains are quite disabling and should be taken seriously. The usual initial treatment of sprains is cold packs, elevation, and rest of the injured area. Your physician has assessed the seriousness of your ligament injury, and has outlined a treatment plan. Understand that this treatment may change, depending on how you progress. If a re-examination was recommended, it is important that you follow up as instructed. Call the doctor any time if there is severe pain, numbness, or loss of function in the injured area. Referrals: FRANK RUTLEDGE, DO [ACTIVE STAFF] - Follow up as needed I personally performed the services described in the documentation, reviewed and edited the documentation which was dictated to the scribe in my presence, and it accurately records my words and actions.
== END 2019-10-03 01:55 | disposition home or self-care (01) ==
LOC: ER 21:40
DX: S46.912A Strain of unspecified muscle, fascia and tendon at shoulder and upper arm level, left arm, initial encounter (principal); M25.522 Pain in left elbow; W19.XXXA Unspecified fall, initial encounter; Y93.72 Activity, wrestling
CPT/HCPCS: 99283; 73080; J3490

== ENCOUNTER 2019-10-20 22:58 | Emergency (ER) | payer OTHER ==
[2019-10-21] MEDS ORDERED: NORMAL SALINE 1000 ML 1,000 ML IV ONE (00:44)
[2019-10-21] MEDS ORDERED: METOCLOPRAMIDE HCL INJ/PF 10 MG/2 ML SDV IV ONE (00:45)
[2019-10-21] MEDS ORDERED: PANTOPRAZOLE SODIUM 40 MG VIAL IV ONE (00:45)
[2019-10-21] MEDS ORDERED: DIPHENHYDRAMINE HCL 50 MG/ML VIAL IV ONE (00:45)
--- NOTE | 2019-10-21 00:49 | ER Document Report ---
Entered by LESLEY MALDONADO SCRIBE 10/21/19 0023 Acting as scribe for:MERISSA KO DO ED General - General Chief Complaint: Headache Stated Complaint: HEADACHE,NAUSEA,VOMITING Time Seen by Provider: 10/21/19 00:16 Information source: Patient Notes: This 19-year-old otherwise healthy female presents to the emergency department complaining of epigastric pain for the past two days. Patient reports a temporal headache, nausea, vomiting and a low-grade temperature. Patient explains that she went to [facility] yesterday and had tests done. Patient said that she was given medicine and told that if she felt worse to return. Patient states that she her symptoms have worsened so she came to the emergency department. TRAVEL OUTSIDE OF THE [place] IN LAST 30 DAYS: No - Related Data Allergies/Adverse Reactions: No Known Allergies Allergy (Verified 10/02/19 22:25) Past Medical History - General Information source: Patient - Social History Smoking Status: Never Smoker Cigarette use (# per day): No Chew tobacco use (# tins/day): No Frequency of alcohol use: None Drug Abuse: None Lives with: Spouse/Significant other Family History: Reviewed & Not Pertinent - Medical History Medical History: Negative Past Surgical History: Reports: Hx Oral Surgery - wisdom teeth - Immunizations Immunizations up to date: Yes Hx Diphtheria, Pertussis, Tetanus Vaccination: Yes Review of Systems - Review of Systems Constitutional: See HPI, Fever EENT: No symptoms reported Cardiovascular: No symptoms reported Respiratory: No symptoms reported Gastrointestinal: See HPI, Abdominal pain, Nausea, Vomiting Genitourinary: No symptoms reported Female Genitourinary: No symptoms reported Musculoskeletal: No symptoms reported Skin: No symptoms reported Hematologic/Lymphatic: No symptoms reported Neurological/Psychological: See HPI, Headaches -: Yes All other systems reviewed and negative Physical Exam - Vital signs Vitals: Temp Pulse Resp BP Pulse Ox 98.3 F 56 L 16 104/43 L 99 10/21/19 00:28 10/21/19 00:28 10/21/19 00:28 10/21/19 00:28 10/21/19 00:28 - Notes Notes: Physical Exam: General: Alert, appears well. HEENT: Normocephalic. Atraumatic. PERRL. Extraocular movements intact. Oropharynx clear. Neck: Supple. Non-tender. Respiratory: No respiratory distress. Clear and equal breath sounds bilaterally. Cardiovascular: Regular rate and rhythm. Abdominal: Mild epigastric tenderness to palpation. Mild bilateral upper quadrant tenderness to palpation. No distension. Normal Bowel Sounds. Back: No gross abnormalities. Extremities: Moves all four extremities. Upper extremities: Normal inspection. Normal ROM. Lower extremities: Normal inspection. No edema. Normal ROM. Neurological: Normal cognition. AAOx4. Normal speech. Psychological: Normal affect. Normal Mood. Skin: Warm. Dry. Normal color. Course - Re-evaluation Re-evalutation: 10/21/19 02:37 MDM 19 year old with nausea and vomiting and headache. Feels better here after IVF and medicines. Discussed return precautions and she expressed understanding. - Vital Signs Vital signs: Temp Pulse Resp BP Pulse Ox 98.3 F 56 L 16 104/43 L 99 10/21/19 00:28 10/21/19 00:28 10/21/19 00:28 10/21/19 00:28 10/21/19 00:28 - Laboratory Result Diagrams: 10/21/19 01:07 10/21/19 01:07 Laboratory results interpreted by me: 10/21/19 10/21/19 01:07 01:07 RBC 3.67 L Hgb 11.2 L Hct 32.7 L Ur Leukocyte Esterase SMALL H Urine Ascorbic Acid 40 H Discharge - Discharge Clinical Impression: Nausea & vomiting Qualifiers: Vomiting type: unspecified Vomiting Intractability: non-intractable Qualified Code(s): R11.2 - Nausea with vomiting, unspecified Condition: Good Disposition: HOME, SELF-CARE Instructions: Antinausea Medication ([facility]), Use of Diphenhydramine, Family Physicians / Practices, Headache ([facility]), Viral Syndrome ([facility]), Vomiting ([facility]) Additional Instructions: Rest, fluids, medicines as directed. Please return here for any problems or any concerns. Prescriptions: Ondansetron [Zofran Odt 4 mg Tablet] 1 - 2 tab PO Q4H PRN #15 tab.rapdis PRN Reason: For Nausea/Vomiting I personally performed the services described in the documentation, reviewed and edited the documentation which was dictated to the scribe in my presence, and it accurately records my words and actions.
[2019-10-21 01:29] LABS: ABSOLUTE LYMPHOCYTES (AUTO) 1.9 10^3/uL (0.5-4.7); ABSOLUTE MONOCYTES (AUTO) 0.4 10^3/uL (0.1-1.4); ABSOLUTE NEUT (AUTO) 2.1 10^3/uL (1.7-8.2); BASOPHILS % (AUTO) 0.5 % (0-2); EOSINOPHILS % (AUTO) 0.9 % (0-6); HEMATOCRIT 32.7 % (36.0-47.0); HEMOGLOBIN 11.2 g/dL (12.0-15.5); LYMPHOCYTES % (AUTO) 42.2 % (13-45); MEAN CORPUSCULAR HEMOGLOBIN 30.4 pg (27.0-33.4); MEAN CORPUSCULAR HGB CONC 34.1 g/dL (32.0-36.0); MEAN CORPUSCULAR VOLUME 89 fl (80-97); PLATELET COUNT 183 10^3/uL (150-450); RED BLOOD COUNT 3.67 10^6/uL (3.72-5.28); RED CELL DISTRIBUTION WIDTH 12.9 % (11.5-14.0); SEGMENTED NEUTROPHILS % (AUTO) 47.4 % (42-78); TOTAL CELLS COUNTED % (AUTO) 100 %; WHITE BLOOD COUNT 4.4 10^3/uL (4.0-10.5)
[2019-10-21 01:37] LABS: APPEARANCE,URINE SLIGHTLY-CLOUDY; BILIRUBIN,URINE NEGATIVE (NEGATIVE); COLOR,URINE YELLOW; GLUCOSE, URINE NEGATIVE (NEGATIVE); KETONES,URINE NEGATIVE (NEGATIVE); LEUKOCYTE ESTERASE,URINE SMALL (NEGATIVE); NITRITE,URINE NEGATIVE (NEGATIVE); PROTEIN,URINE NEGATIVE (NEGATIVE); URINE SPECIFIC GRAVITY 1.019; UROBILINOGEN,URINE NEGATIVE mg/dL (<2.0)
[2019-10-21 01:53] LABS: ALBUMIN 4.1 g/dL (3.5-5.0); ALKALINE PHOSPHATASE 39 U/L (38-126); ASPARTATE AMINO TRANSFERASE 19 U/L (14-36); BILIRUBIN,TOTAL 0.4 mg/dL (0.2-1.3); BLOOD UREA NITROGEN 11 mg/dL (7-20); CALCIUM 8.9 mg/dL (8.4-10.2); CHLORIDE 106 mmol/L (98-107); GLUCOSE 89 mg/dL (75-110); POTASSIUM 4.1 mmol/L (3.6-5.0); TOTAL PROTEIN 6.5 g/dL (6.3-8.2)
[2019-10-21 01:59] LABS: ANION GAP 6 (5-19); CARBON DIOXIDE 26 mmol/L (22-30)
[2019-10-21 02:46] VITALS: BP 112/58
== END 2019-10-21 03:14 | disposition home or self-care (01) ==
LOC: ER 22:58
DX: R11.2 Nausea with vomiting, unspecified (principal); R51 Headache; R10.13 Epigastric pain; R50.9 Fever, unspecified
CPT/HCPCS: 99284; 96361; 96374; 96375; 36415; 83690; 85025; 81025; 80053; 81001; 84484; J1200; J2765; C9113; J7030

== ENCOUNTER → 2019-12-21 | Outpatient (CLI) | payer OTHER ==
[2019-12-21 13:59] LABS: RBCS (WET MOUNT) NO RBCS SEEN; T.VAGINALIS (WET MOUNT) NO TRICHOMONAS SEEN; WBCS (WET MOUNT) 3+ WBCS SEEN; YEAST (WET MOUNT) NO YEAST SEEN
[2019-12-21 14:00] LABS: BACTERIA (WET MOUNT) 4+ BACTERIA SEEN
[2019-12-21 15:36] LABS: CHLAM PCR DETECTED (NOT DETECT)
== END ==
LOC: LAB 13:45
PROVIDERS: ATTEND Nurse Practitioner Family
DX: N76.0 Acute vaginitis (principal)
CPT/HCPCS: 87210; 87491; 87591

== ENCOUNTER 2020-01-11 12:14 | Emergency (ER) | payer OTHER ==
--- NOTE | 2020-01-11 13:46 | ER Document Report ---
ED General - General Chief Complaint: Cold Symptoms Stated Complaint: HEADACHE,ABDOMINAL PAIN,COUGH Time Seen by Provider: 01/11/20 13:14 Primary Care Provider: GUILLERMINA ISAAC FNP-BC [Primary Care Provider] - Follow up as needed Mode of Arrival: Ambulatory Information source: Patient Notes: 19-year-old female with no previous medical problems presents to the emergency room complaining of a generalized headache, diffuse abdominal pain, midsternal chest pain for the past 3 days. Describes the headache and chest pain as throbbing and intermittent. Describes abdominal pain as cramping.. Has been nauseous and vomited only on Thursday 3 episodes of diarrhea yesterday none today. Has been taking Tylenol without relief. Denies worst headache of her life. Denies any sudden thunderclap. No history of migraines. No recent head trauma. No fevers. No urinary symptoms. No recent travel. No COVID-19 exposure. TRAVEL OUTSIDE OF THE [place] IN LAST 30 DAYS: No - Related Data Allergies/Adverse Reactions: No Known Allergies Allergy (Verified 01/11/20 13:21) Past Medical History - General Information source: Patient - Social History Smoking Status: Former Smoker Frequency of alcohol use: None Drug Abuse: None Family History: Reviewed & Not Pertinent Patient has homicidal ideation: No Neurological Medical History: Reports: Hx Migraine Past Surgical History: Reports: Hx Oral Surgery - wisdom teeth - Immunizations Immunizations up to date: Yes Hx Diphtheria, Pertussis, Tetanus Vaccination: Yes Review of Systems - Review of Systems Constitutional: No symptoms reported EENT: No symptoms reported Cardiovascular: Chest pain. denies: Dyspnea Respiratory: Cough Gastrointestinal: Abdominal pain, Diarrhea, Nausea, Vomiting Genitourinary: No symptoms reported Musculoskeletal: No symptoms reported Skin: No symptoms reported Neurological/Psychological: No symptoms reported -: Yes All other systems reviewed and negative Physical Exam - Vital signs Vitals: Temp 98.5 F 01/11/20 13:00 - General General appearance: Appears well, Alert In distress: Mild - HEENT Head: Normocephalic, Atraumatic Eyes: Normal Conjunctiva: Normal Extraocular movements intact: Yes Eyelashes: Other Pupils: PERRL Ears: Normal External canal: Normal Tympanic membrane: Normal Sinus: Normal Nasal: Normal Mucous membranes: Normal Pharynx: Normal Neck: Normal Notes: Bilateral photophobia. No nystagmus - Respiratory Respiratory status: No respiratory distress Chest status: Nontender Breath sounds: Normal Chest palpation: Normal - Cardiovascular Rhythm: Regular Heart sounds: Normal auscultation Murmur: No Gallop: None auscultated Notes: Chest wall nontender to palpation. - Abdominal Inspection: Normal Distension: No distension Bowel sounds: Normal Tenderness: Nontender Organomegaly: No organomegaly - Neurological Neuro grossly intact: Yes Cognition: Normal Orientation: AAOx4 [place] Coma Scale Eye Opening: Spontaneous [place] Coma Scale Verbal: Oriented [place] Coma Scale Motor: Obeys Commands [place] Coma Scale Total: 15 Speech: Normal Motor strength normal: LUE, RUE, LLE, RLE Sensory: Normal - Skin Skin Temperature: Warm Skin Moisture: Dry Skin Color: Normal Course - Re-evaluation Re-evalutation: 01/11/20 13:54 Patient with multiple complaints, will get CT head, cardiac work-up, IV fluids, medications, and reevaluate. 01/11/20 16:11 HEART Score: History 0 ECG 0 Age 0 Risk Factors 0 Troponin 0 Total: 0 01/11/20 16:48 Patient currently resting comfortably states her headache, chest pain, and abdominal pain have resolved. She is pain-free on exam. Denies headache or chest pain at this time. All test results were reviewed with the patient. Counseled on need to follow-up outpatient with her primary care physician if not improving in 2 to 3 days. Patient was given strict return to the emergency room guidelines. Return for any new or worsening symptoms. All questions were answered. Patient verbalized understanding and agrees with plan of care. 01/11/20 17:11 - Vital Signs Vital signs: Temp Pulse Resp BP Pulse Ox 98.7 F 67 16 103/62 100 01/11/20 17:03 01/11/20 17:03 01/11/20 13:03 01/11/20 17:03 01/11/20 17:03 - Laboratory Result Diagrams: 01/11/20 13:55 01/11/20 13:55 Laboratory results interpreted by me: 01/11/20 13:50 Urine Blood LARGE H - Diagnostic Test Radiology reviewed: Reports reviewed - EKG Interpretation by Me EKG shows normal: Sinus rhythm Rate: Bradycardia Rhythm: NSR Additional EKG results interpreted by me: 01/11/20 14:37 EKG was interpreted by ED physician Dr. Dimas No acute STEMI Normal sinus rhythm Rate of [address] wave abnormalities noted Discharge - Discharge Clinical Impression: Chest pain of unknown etiology Headache Qualifiers: Headache type: unspecified Headache chronicity pattern: acute headache Intractability: not intractable Qualified Code(s): R51 - Headache Condition: Stable Disposition: HOME, SELF-CARE Instructions: Chest Pain of Unclear Cause ([facility]), Headache ([facility]) Additional Instructions: Take Tylenol or Motrin as needed for pain. Outpatient follow-up with a primary care physician if not improving in 2 to 3 days. Can take Zofran as needed for nausea. Return to emergency room for any new or worsening symptoms. Prescriptions: Ondansetron [Zofran Odt 4 mg Tablet] 1 tab PO Q4H PRN #15 tab.rapdis PRN Reason: For Nausea/Vomiting Forms: Return to Work Referrals: GUILLERMINA ISAAC, [employer] [facility] [Primary Care Provider] - Follow up as needed
[2020-01-11 14:23] LABS: ABSOLUTE EOSINOPHILS # (AUTO) 0.1 10^3/uL (0.0-0.6); ABSOLUTE LYMPHOCYTES (AUTO) 1.4 10^3/uL (0.5-4.7); ABSOLUTE MONOCYTES (AUTO) 0.4 10^3/uL (0.1-1.4); ABSOLUTE NEUT (AUTO) 3.2 10^3/uL (1.7-8.2); BASOPHILS % (AUTO) 0.5 % (0-2); EOSINOPHILS % (AUTO) 1.1 % (0-6); HEMATOCRIT 38.4 % (36.0-47.0); HEMOGLOBIN 12.8 g/dL (12.0-15.5); LYMPHOCYTES % (AUTO) 27.8 % (13-45); MEAN CORPUSCULAR HGB CONC 33.4 g/dL (32.0-36.0); MEAN CORPUSCULAR VOLUME 90 fl (80-97); MONOCYTES % (AUTO) 7.1 % (3-13); PLATELET COUNT 245 10^3/uL (150-450); RED BLOOD COUNT 4.26 10^6/uL (3.72-5.28); RED CELL DISTRIBUTION WIDTH 13.3 % (11.5-14.0); SEGMENTED NEUTROPHILS % (AUTO) 63.5 % (42-78); TOTAL CELLS COUNTED % (AUTO) 100 %; WHITE BLOOD COUNT 5.1 10^3/uL (4.0-10.5)
[2020-01-11 14:46] LABS: ALBUMIN 4.9 g/dL (3.5-5.0); ALKALINE PHOSPHATASE 49 U/L (38-126); ANION GAP 8 (5-19); ASPARTATE AMINO TRANSFERASE 27 U/L (14-36); BILIRUBIN,TOTAL 0.3 mg/dL (0.2-1.3); BLOOD UREA NITROGEN 11 mg/dL (7-20); CALCIUM 9.4 mg/dL (8.4-10.2); CARBON DIOXIDE 27 mmol/L (22-30); CHLORIDE 104 mmol/L (98-107); CREATINE KINASE 75 U/L (30-135); GLUCOSE 93 mg/dL (75-110); POTASSIUM 4.7 mmol/L (3.6-5.0); TOTAL PROTEIN 7.7 g/dL (6.3-8.2)
[2020-01-11 15:01] LABS: TROPONIN I < 0.012 ng/mL
--- NOTE | 2020-01-11 15:03 | EKG REPORT ---
SEVERITY:- NORMAL ECG - SINUS BRADYCARDIA : Confirmed by: Dejuan Ferris MD 11-Jan-2020 15:02:07
--- NOTE | 2020-01-11 15:03 | RADIOLOGY REPORT (SQ) ---
EXAM DESCRIPTION: CHEST SINGLE VIEW IMAGES COMPLETED DATE/TIME: 01/11/2020 2:53 pm REASON FOR STUDY: chest pain COMPARISON: None. EXAM PARAMETERS: NUMBER OF VIEWS: One view. TECHNIQUE: Single frontal radiographic view of the chest acquired. RADIATION DOSE: NA LIMITATIONS: None. FINDINGS: LUNGS AND PLEURA: No opacities, masses or pneumothorax. No pleural effusion. MEDIASTINUM AND HILAR STRUCTURES: No masses. Contour normal. HEART AND VASCULAR STRUCTURES: Heart normal in size. Normal vasculature. BONES: No acute findings. HARDWARE: None in the chest. OTHER: No other significant finding. IMPRESSION: NO ACUTE RADIOGRAPHIC FINDING IN THE CHEST. TECHNICAL DOCUMENTATION: JOB ID: [id number] 2010 [employer]- All Rights Reserved Reading location - IP/workstation name: [email or web address]
[2020-01-11 15:07] LABS: APPEARANCE,URINE CLEAR; BILIRUBIN,URINE NEGATIVE (NEGATIVE); COLOR,URINE STRAW; GLUCOSE, URINE NEGATIVE (NEGATIVE); KETONES,URINE NEGATIVE (NEGATIVE); LEUKOCYTE ESTERASE,URINE NEGATIVE (NEGATIVE); NITRITE,URINE NEGATIVE (NEGATIVE); PROTEIN,URINE NEGATIVE (NEGATIVE); UROBILINOGEN,URINE NEGATIVE mg/dL (<2.0)
[2020-01-11] MEDS ORDERED: KETOROLAC TROMETHAMINE INJ/PF 30 MG/1 ML SDV IV ONE (15:28)
[2020-01-11] MEDS ORDERED: NORMAL SALINE 1000 ML 1,000 ML IV ONE (15:28)
[2020-01-11] MEDS ORDERED: METOCLOPRAMIDE HCL INJ/PF 10 MG/2 ML SDV IV ONE (15:28)
--- NOTE | 2020-01-11 15:57 | RADIOLOGY REPORT (SQ) ---
EXAM DESCRIPTION: CT HEAD WITHOUT IMAGES COMPLETED DATE/TIME: 01/11/2020 3:47 pm REASON FOR STUDY: headache COMPARISON: None. TECHNIQUE: Axial images acquired through the brain without intravenous contrast. Images reviewed wi th bone, brain and subdural windows. Additional sagittal and coronal reconstructions were generated. Images stored on PACS. All CT scanners at this facility use dose modulation, iterative reconstruction, and/or weight based d osing when appropriate to reduce radiation dose to as low as reasonably achievable (ALARA). [facility]: Dose Right [facility]: CareDose [facility]: Dose Right [facility]: Teradose 4D [facility]: Comic Rocket RADIATION DOSE: CT Rad equipment meets quality standard of care and radiation dose reduction techniq ues were employed. CTDIvol: 53.2 mGy. DLP: 1044 mGy-cm. mGy. LIMITATIONS: None. FINDINGS: VENTRICLES: Normal size and contour. CEREBRUM: No masses. No hemorrhage. No midline shift. No evidence for acute infarction. Normal gra y/white matter differentiation. No areas of low density in the white matter. CEREBELLUM: No masses. No hemorrhage. No alteration of density. No evidence for acute infarction. EXTRAAXIAL SPACES: No fluid collections. No masses. ORBITS AND GLOBE: No intra- or extraconal masses. Normal contour of globe without masses. CALVARIUM: No fracture. PARANASAL SINUSES: No fluid or mucosal thickening. SOFT TISSUES: No mass or hematoma. OTHER: No other significant finding. IMPRESSION: NORMAL BRAIN CT WITHOUT CONTRAST. EVIDENCE OF ACUTE STROKE: NO. COMMENT: Quality ID # [id number]: Final reports with documentation of one or more dose reduction techniques (e.g., Automated exposure control, adjustment of the mA and/or kV according to patient size, use of iterative reconstruction technique) TECHNICAL DOCUMENTATION: JOB ID: [id number] 2010 [employer]- All Rights Reserved Reading location - IP/workstation name: [email or web address]
[2020-01-11 17:04] VITALS: BP 103/62
== END 2020-01-11 17:04 | disposition home or self-care (01) ==
LOC: ER 12:14
DX: R51 Headache (principal); R07.9 Chest pain, unspecified; R10.84 Generalized abdominal pain; R05 Cough; R00.1 Bradycardia, unspecified; Z87.891 Personal history of nicotine dependence
CPT/HCPCS: 93005; 99285; 36415; 82553; 82550; 84703; 85025; 80053; 81001; 84484; 71045; 70450; 93010; J1885; J2765; J7030

== ENCOUNTER 2020-02-28 14:44 | Emergency (ER) | payer OTHER ==
--- NOTE | 2020-02-28 17:06 | ER Document Report ---
ED General - General Chief Complaint: Back Pain Stated Complaint: BACK PAIN Time Seen by Provider: 02/28/20 17:05 Primary Care Provider: GUILLERMINA ISAAC FNP-BC [Primary Care Provider] - Follow up as needed TRAVEL OUTSIDE OF THE [place] IN LAST 30 DAYS: No - HPI Notes: 19-year-old female presents with back pain. Patient states she has had right sided lower back pain for the past 2 years, it is constant and occurs daily. However for the past 1 week it has been increasing from its baseline. Radiates to the front. She states that because of the pain she cannot leave her bed. She no known injury initially at onset of back pain, no injury recently. Has been ambulatory. No numbness or weakness in the lower legs. She states that she takes ibuprofen or naproxen, typically only takes these once a day. Does not seem to change pain. She states that because of this pain she was actually medically discharged from the . She states before her medical discharge, she had x-ray, CT, MRI and ultrasound performed. She states that there was never a reason found to be causing the pain. She does not have a established PCP. Additionally states she has cycles of several days of diarrhea, then several days where she does not have a bowel movement. She denies urinary symptoms. - Related Data Allergies/Adverse Reactions: No Known Allergies Allergy (Verified 01/11/20 13:21) Past Medical History - General Information source: Patient - Social History Smoking Status: Never Smoker Family History: Reviewed & Not Pertinent Patient has homicidal ideation: No Neurological Medical History: Reports: Hx Migraine Past Surgical History: Reports: Hx Oral Surgery - wisdom teeth - Immunizations Immunizations up to date: Yes Hx Diphtheria, Pertussis, Tetanus Vaccination: Yes Review of Systems - Review of Systems Constitutional: denies: Fever EENT: No symptoms reported Cardiovascular: No symptoms reported Respiratory: No symptoms reported Gastrointestinal: Diarrhea. denies: Abdominal pain Genitourinary: denies: Dysuria Musculoskeletal: Back pain Skin: No symptoms reported Hematologic/Lymphatic: No symptoms reported Neurological/Psychological: denies: Weakness, Numbness Physical Exam - Vital signs Vitals: Temp Pulse Resp BP Pulse Ox 98.6 F 59 L 16 105/70 100 02/28/20 15:15 02/28/20 15:15 02/28/20 15:15 02/28/20 15:15 02/28/20 15:15 - General General appearance: Appears well In distress: None - HEENT Head: Normocephalic, Atraumatic Extraocular movements intact: Yes Pupils: PERRL - Respiratory Breath sounds: Normal - Cardiovascular Rhythm: Regular Heart sounds: Normal auscultation - Abdominal Distension: No distension Tenderness: Nontender Organomegaly: No organomegaly - Back Back: Other - Tenderness over the right iliac crest. No midline tenderness. No tenderness to SI joint or over sacral notch.. No: CVA tenderness, Vertebra tenderness - Extremities General upper extremity: Normal ROM General lower extremity: Normal ROM - Neurological Neuro grossly intact: Yes Cognition: Normal Orientation: AAOx4 Speech: Normal Cranial nerves: Normal Motor strength normal: LUE, RUE, LLE, RLE Sensory: Normal - Psychological Associated symptoms: Normal affect - Skin Skin Temperature: Warm Course - Re-evaluation Re-evalutation: 19-year-old female here with atraumatic right lower back pain x2 years, increasing over the past week. Was discharged from the for this pain, per her report had an extensive work-up including multiple imaging modalities without diagnosis. On exam she is well appearing, she has no abdominal tenderness, lungs are clear, she has some tenderness over the right iliac crest. There is no midline vertebral tenderness. She is neurologically in tact. I suspect that this is likely muscular in origin, may be some inflammation to the insertion of the quadratus lumborum to the iliac crest, may be some ligamentous involvement. Based on her exam I would not suspect acute spinal cord etiology to be this time. May be she potentially has some degree of peripheral nerve compression. Motrin, Flexeril and lidocaine patch ordered. Will check lumbar x-ray. Check urine. 02/28/20 20:05 Urine does not suggest UTI. Lumbar x-ray is overall read as negative per radiology. 02/28/20 20:08 Patient updated on results. Encouraged her to have primary care follow-up. Instructed to continue ibuprofen and lidocaine patches. Patient stable at time of discharge. - Vital Signs Vital signs: Temp Pulse Resp BP Pulse Ox 98.5 F 61 15 106/60 99 02/28/20 19:57 02/28/20 19:57 02/28/20 19:57 02/28/20 19:57 02/28/20 19:57 - Laboratory Laboratory results interpreted by me: 02/28/20 18:30 Urine Blood MODERATE H Ur Leukocyte Esterase SMALL H - Diagnostic Test Radiology reviewed: Image reviewed, Reports reviewed Discharge - Discharge Clinical Impression: Chronic back pain Qualifiers: Back pain location: low back pain Back pain laterality: right Sciatica presence: without sciatica Qualified Code(s): M54.5 - Low back pain; G89.29 - Other chronic pain Disposition: HOME, SELF-CARE Instructions: Low Back Pain ([facility]) Additional Instructions: Please follow-up with your primary care doctor. You may continue to use ibuprofen/Motrin, you can take this multiple times per day. He may purchase [id number] lidocaine patches. Return to the emergency department for any concerning worsening symptoms. Referrals: GUILLERMINA ISAAC FNP-FABIOLA [Primary Care Provider] - Follow up as needed
[2020-02-28] MEDS ORDERED: CYCLOBENZAPRINE HCL 10 MG TABLET PO ONE (17:16)
[2020-02-28] MEDS ORDERED: KETOROLAC TROMETHAMINE 60 MG/2 ML SDV IM ONE (17:16)
[2020-02-28] MEDS ORDERED: LIDOCAINE 5% (700 MG) TRANSDERMAL ADH..PATCH TP ONE (17:17)
[2020-02-28 18:47] LABS: APPEARANCE,URINE SLIGHTLY-CLOUDY; BILIRUBIN,URINE NEGATIVE (NEGATIVE); COLOR,URINE YELLOW; GLUCOSE, URINE NEGATIVE (NEGATIVE); KETONES,URINE NEGATIVE (NEGATIVE); LEUKOCYTE ESTERASE,URINE SMALL (NEGATIVE); NITRITE,URINE NEGATIVE (NEGATIVE); PROTEIN,URINE NEGATIVE (NEGATIVE); URINE SPECIFIC GRAVITY 1.013; UROBILINOGEN,URINE NEGATIVE mg/dL (<2.0)
--- NOTE | 2020-02-28 19:59 | RADIOLOGY REPORT (SQ) ---
EXAM DESCRIPTION: L SPINE WHOLE IMAGES COMPLETED DATE/TIME: 02/28/2020 7:31 pm REASON FOR STUDY: R lower back pain COMPARISON: None. NUMBER OF VIEWS: Five views including obliques. TECHNIQUE: AP, lateral, oblique, and sacral radiographic images acquired of the lumbar spine. LIMITATIONS: None. FINDINGS: MINERALIZATION: Normal. SEGMENTATION: Normal. No transitional anatomy. ALIGNMENT: Normal. VERTEBRAE: Maintained height. No fracture or worrisome bone lesion. DISCS: Preserved height. No significant osteophytes or end plate irregularity. POSTERIOR ELEMENTS: Pedicles and facets are intact. No pars defect or posterior arch defects. HARDWARE: None in the spine. PARASPINAL SOFT TISSUES: Normal. PELVIS: Intact as visualized. No fractures or worrisome bone lesions. SI joints intact. OTHER: No other significant finding. IMPRESSION: NORMAL 5 VIEW LUMBAR SPINE. TECHNICAL DOCUMENTATION: JOB ID: [id number] 2010 [employer]- All Rights Reserved Reading location - IP/workstation name: [email or web address]
[2020-02-28 20:25] VITALS: BP 108/70
== END 2020-02-28 22:05 | disposition home or self-care (01) ==
LOC: ER 14:44
DX: G89.29 Other chronic pain (principal); M54.5 Low back pain; R19.7 Diarrhea, unspecified
CPT/HCPCS: 99284; 96372; 81025; 81001; 72110; J1885